=== PATIENT | female | born 1965 | race Caucasian/White ===

== ENCOUNTER 2017-10-08 17:34 | Emergency (ER) | payer MEDICAID ==
[2017-10-08] MEDS: LORAZEPAM 0.5 MG TAB PO (19:04)
== END 2017-10-08 20:10 | disposition home or self-care (01) ==
LOC: FTE 17:34
DX: F41.9 Anxiety disorder, unspecified (principal); R21 Rash and other nonspecific skin eruption; I10 Essential (primary) hypertension; F17.210 Nicotine dependence, cigarettes, uncomplicated; E11.9 Type 2 diabetes mellitus without complications; Z79.82 Long term (current) use of aspirin
CPT/HCPCS: 82962; 93005; 99283-25

== ENCOUNTER 2018-02-24 17:18 | Emergency (ER) | payer MEDICAID ==
[2018-02-24] MEDS: MECLIZINE 12.5 MG TAB PO (20:20)
== END 2018-02-24 22:23 | disposition home or self-care (01) ==
LOC: E/R 22:23
DX: R42 Dizziness and giddiness (principal); I10 Essential (primary) hypertension; F17.210 Nicotine dependence, cigarettes, uncomplicated; Z79.82 Long term (current) use of aspirin
CPT/HCPCS: 70450; 93005; 99284-25